=== PATIENT | female | born 1970 | race Caucasian/White ===

== ENCOUNTER 2016-12-09 11:33 | Day surgery (SDC) | payer OTHER ==
[~2016-12-09] VITALS: Ht 160 cm; Wt 66.0 kg
[2016-12-09] VITALS (20 sets, daily range): BP systolic 83–130; BP diastolic 45–79; PULSE 50–104; RESP 15–25; Ht 160 cm; Wt 66.0 kg
[~2016-12-09 11:33] MED LIST: CIPROFLOXACIN 400 MG in D5W 200 ML IVPB PRN; IRON
[2016-12-09] MEDS ORDERED: IOHEXOL 300MG/ML 30 ML BTL ONE (12:04)
[2016-12-09] MEDS ORDERED: TOPI-25 PO (12:30)
[2016-12-09] MEDS ORDERED: PROPOFOL 20 ML ONE (13:04)
[2016-12-09] MEDS ORDERED: GLYCOPYRROLATE 0.4 MG INJ ONE ×2 (13:04→13:49)
[2016-12-09] MEDS ORDERED: ROCURONIUM 50 MG INJ ONE (13:04)
[2016-12-09] MEDS ORDERED: MEPERIDINE 100 MG INJ ONE (13:04)
[2016-12-09] MEDS ORDERED: NEOSTIGMINE 3 MG/3 ML SYRINGE ONE (13:04)
[2016-12-09] MEDS ORDERED: LIDOCAINE 2% (SDV) 5 ML INJ ONE (13:04)
[2016-12-09] MEDS ORDERED: SUCCINYLCHOLINE CHLORIDE 100 MG/5 ML SYG IV ONE (13:04)
--- NOTE | 2016-12-09 13:04 | HPN ---
Date/Time of Note Date/Time of Note DATE: 12/09/16 TIME: 13:04 Interval H&P Admission Note Pt. seen H&P reviewed: No system changes CELSO SARKAR Dec 09, 2016 13:04
[2016-12-09] MEDS ORDERED: ONDANSETRON 4 MG INJ ONE (13:48)
[2016-12-09] MEDS ORDERED: METOCLOPRAMIDE 10 MG INJ ONE (13:48)
[2016-12-09] MEDS ORDERED: HYDROmorphONE (0.2 MG/ML) 10ML SYG IV PRN ×3 (14:00)
[2016-12-09] MEDS ORDERED: ONDANSETRON 4 MG INJ IV PRN (14:00)
[2016-12-09] MEDS ORDERED: MEPERIDINE 25 MG INJ IV PRN (14:00)
[2016-12-09] MEDS ORDERED: hydrALAzine 20 MG INJ IV PRN (14:00)
[2016-12-09] MEDS ORDERED: MIDAZOLAM 1 MG/ML 2 ML INJ IV PRN (14:00)
[2016-12-09] MEDS ORDERED: LABETALOL HCL 20MG INJ IV PRN (14:00)
[2016-12-09] MEDS ORDERED: METOCLOPRAMIDE 10 MG INJ IV PRN (14:00)
[2016-12-09] MEDS ORDERED: DIPHENHYDRAMINE 50 MG INJ IV PRN (14:00)
[2016-12-09] MEDS ORDERED: EPHEDrine SULFATE 50 MG/5 ML SYG IV PRN (14:00)
[2016-12-09] MEDS ORDERED: OXYCODONE/ACETAMINOPHEN (5/325) TAB PO PRN ×2 (14:00)
[2016-12-09] MEDS ORDERED: FENTAnyl 50 MCG/ML VIAL IV PRN ×3 (14:00)
--- NOTE | 2016-12-09 14:04 | OPR ---
Date/Time of Note Date/Time of Note DATE: 12/09/16 TIME: 14:02 Operative Report Procedure Date: Dec 09, 2016 Preoperative Diagnosis r. ureteral stone Postoperative Diagnosis same Operation/Procedure Performed exchange r stent, rgp, ureteroscopic stone extraction Surgeon kalli Order Clerk kalli Anesthesia Type: general Estimated Blood Loss: none Transfusion none Specimen stone Grafts/Implants none Tubes/Drains 24 cm 4.8 f stent Complications none Pt Condition Post Procedure: stable Disposition: PACU Indications stone Procedure Description dictated [id number] CELSO SARKAR Dec 09, 2016 14:04
--- NOTE | 2016-12-09 14:04 | OPR ---
Date/Time of Note Date/Time of Note DATE: 12/09/16 TIME: 14:02 Operative Report Procedure Date: Dec 09, 2016 Preoperative Diagnosis r. ureteral stone Postoperative Diagnosis same Operation/Procedure Performed exchange r stent, rgp, ureteroscopic stone extraction Surgeon kalli Micro Computer Specialist kalli Anesthesia Type: general Estimated Blood Loss: none Transfusion none Specimen stone Grafts/Implants none Tubes/Drains 24 cm 4.8 f stent Complications none Pt Condition Post Procedure: stable Disposition: PACU Indications stone Procedure Description dictated [id number] CELSO SARKAR Dec 09, 2016 14:04
--- NOTE | 2016-12-09 14:04 | OPR ---
Date/Time of Note Date/Time of Note DATE: 12/09/16 TIME: 14:02 Operative Report Procedure Date: Dec 09, 2016 Preoperative Diagnosis r. ureteral stone Postoperative Diagnosis same Operation/Procedure Performed exchange r stent, rgp, ureteroscopic stone extraction Surgeon kalli Php Wordpress Developer kalli Anesthesia Type: general Estimated Blood Loss: none Transfusion none Specimen stone Grafts/Implants none Tubes/Drains 24 cm 4.8 f stent Complications none Pt Condition Post Procedure: stable Disposition: PACU Indications stone Procedure Description dictated [id number] CELSO SARKAR Dec 09, 2016 14:04
[2016-12-09] MEDS ORDERED: PROVENTIL HFA 6.7GM INHALER ONE (14:05)
--- NOTE | 2016-12-09 14:07 | PDOCDIS ---
Discharge Instructions DIAGNOSIS Discharge Diagnosis right ureteral stone CONDITION Patient Condition: Good HOME CARE INSTRUCTIONS: Diet Instructions: Regular ACTIVITY: Activity Restrictions: No Restrictions FOLLOW UP/APPOINTMENTS Follow-up Plan F/U Office next week for removal of stent. Patient to call for time and date REFERRALS Other Referrals None OTHER ORDERS: Other Orders: Tramadol for pain SCHOOL/WORK RELEASE May return to School/Work on: Dec 10, 2016 CELSO SARKAR Dec 09, 2016 14:07
[2016-12-09] MEDS ORDERED: IOHEXOL 350 100 ML BTL IV ONE (14:24)
--- NOTE | 2016-12-09 14:51 | HP ---
DATE OF ADMISSION: 12/09/2016 HISTORY OF PRESENT ILLNESS: Prerna is a 46-year-old female with urinary tract infection and nephroli thiasis. She is status post insertion of a right ureteral stent on 10/20/2016. Follow up CT scan d emonstrates stone burden in the proximal right ureter with a stent in place. She now presents for c ystoscopy, removal of stent, right retrograde pyelogram, ureteroscopy, endoscopic holmium laser lith otripsy, insertion right ureteral stent. PAST MEDICAL HISTORY: Nephrolithiasis, hepatitis C. PAST SURGICAL HISTORY: Cholecystectomy, gastric bypass, fistula repair, exploratory laparotomy, ins ertion of stent. ALLERGIES: NSAIDs, BACTRIM AND PENICILLIN. CURRENT MEDICATIONS: Topiramate. PHYSICAL EXAMINATION: LUNGS: Breath sounds bilaterally. HEART: Regular rate and rhythm. ABDOMEN: Soft, nondistended, nontender, no palpable masses. No flank or CVA tenderness. No masses . IMPRESSION: Proximal right ureteral stone burden, status post insertion of stent. PLAN: Removal of stent, right retrograde pyelogram, ureteroscopic stone extraction with endoscopic Holmium laser lithotripsy, basketing the stone fragments and reinsertion of stent. How the procedur e is performed, potential complications, inability to reach the stone burden, migration of stone bur den, requirement of removal of stent in a timely fashion, bladder ureteral renal injury secondary op en procedure, secondary closed procedure, symptoms associated with the stent have additionally all b een reviewed. Preoperative consent has been reviewed and signed. All questions have been answered. Dictated By: CELSO STUART/LORNA Conf#: [id number] DID#: [id number]
--- NOTE | 2016-12-09 15:35 | OPR ---
DATE OF OPERATION: 12/09/2016 BRIEF HISTORY: Prerna is a 46-year-old female with a right ureteral stone, status post insertion of stent by outside urologist now presenting for removal of stent, ureteroscopic stone extraction with endoscopic Holmium laser lithotripsy and reinsertion of stent. How the procedure is performed, pote ntial complications, side effects, etc. have all been previously discussed with patient and document ed. PREOPERATIVE DIAGNOSIS: Right ureteral stone. POSTOPERATIVE DIAGNOSIS: Right ureteral stone. PROCEDURE: Removal of right ureteral stent, right retrograde pyelogram, ureteroscopic stone extract ion with endoscopic holmium laser lithotripsy, basket of stone fragments, insertion right ureteral s tent. SURGEON: Dr. Lopez. ANESTHESIA: General. FINDINGS: Impacted right mid ureteral stent with partial encrustation of stent. DRAINS: A 24 cm 4.8 Slovenian ureteral stent. COMPLICATIONS: None. SPECIMENS: Stone. PROCEDURE: The patient was brought into the operating room and placed on the operating room table i n the supine lithotomy position. She was prepped and draped in usual fashion after anesthesia was i nduced. A timeout was undertaken. Appropriate pressure points were padded and she received preoper ative antibiotic therapy. Sequential compression devices were applied. A KUB with oblique was obta ined which demonstrated increase in bowel gas pattern consistent with prior gastric bypass surgery. The previously placed right ureteral stent was in proper anatomical position. No stone burden coul d be appreciated along the course of the stent. Rigid cystoscopy was undertaken with a 12-degree, 3 0-degree angle lens protruding from the right ureteral orifice. It was a right ureteral stent which was encrusted with marked encrustation. There is marked amount of inflammatory response around the right ureteral orifice. No other abnormalities could be appreciated. Utilizing gentle manipulatio n and a flexible graspers, the ureteral stent was removed at the level of the urethral meatus. This was removed with very gentle manipulation, adherence of the stent to the surrounding tissue was rosalia reciated yet the stent was noted to be removed in an antegrade fashion without any noted difficulty. In an attempt to insert a wire up through the ureteral stent was unable to be performed due to enc rustation. The distal 3 cm of the stent were then cut and a repeat attempt to insert a wire into th e lumen was still unable to be performed due to encrustation within the lumen and thus the stent was removed intact. Once again, a slight amount of encrustation could be appreciated, yet without any noted difficulty, the stent was removed intact. Repeat cystoscopy demonstrated debris to exit from the right ureteral orifice. The 5-Slovenian open-ended catheter was then reinserted into the ureter wh ich demonstrated a luminal defect in the mid ureter and marked hydroureteronephrosis. The collectin g system is massively dilated. The open-ended catheter was advanced up to the level of the renal pe lvis, which allowed for an Amplatz wire to be placed. Ureteroscopy was then undertaken without any difficulty. The ureteroscope was easily inserted into the distal right ureter. There is a marked a mount of inflammatory response and edema of the barron of the ureter. In the mid ureter an impacted stone was identified and, under direct vision, a 275 micron Holmium fiber was utilized to fragment t he stone. The fragments were appropriately fragmented under direct vision with the portion of the f ragments being sent to pathology for stone analysis, the stone fragments were removed with a 3.0 nit inol tipless basket. This was repetitively performed under direct vision until no further stone bur den could be appreciated. At this point, a repeat ureteroscopy was undertaken. The ureteroscope wa s easily inserted up into the level of the renal pelvis at the juncture of the upper gely and renal pelvis. No further stone burden could be appreciated. Debris was noted within the renal pelvis co nsistent with an indwelling ureteral stent. No further points of obstruction could be appreciated. Due to marked amount of edema of the ureter, a 24 cm 4.8 Slovenian ureteral stent was inserted with th e proximal aspect coiling within the renal pelvis and the distal aspect coiling within the bladder. Attached to the distal end was a taper string. Appropriate position was confirmed with direction w ith fluoroscopy and a KUB. The patient will be transferred to recovery room in stable condition and discharged to home when stable. Of note, the patient states that preoperatively she is unable to t olerate narcotics, but has been taking Tramadol 50 mg p.o. q.i.d. p.r.n. and thus a prescription for tramadol has been written, dispensed #40 tablets, no refill. She will follow up next week for a cy stoscopy, stent removal. The importance of timely removal of stent to void further encrustation and complications has been stressed with her preoperatively as well as postoperatively with her sister. Dictated By: CELSO STUART/LORNA Conf#: [id number] DID#: [id number]
--- NOTE | 2016-12-09 17:07 | RADRPT ---
PROCEDURE: Intraoperative imaging of the abdomen and pelvis with fluoroscopy. CLINICAL INDICATION: Abdominal pain. Intraoperative. TECHNIQUE: 5 images of the abdomen and pelvis were obtained in the operating room with an image in tensifier. No radiologist was in attendance. Fluoroscopy time is 49 seconds and 5 images were obta ined. COMPARISON: No prior study is available for comparison. FINDINGS: The first image demonstrates a right ureteral stent. The second image demonstrates injection of cont rast into the right renal pelvis which appears markedly dilated. The final images demonstrate replac ement of the right ureteral stent. IMPRESSION: 1. Marked right hydronephrosis. 2. Replacement of right ureteral stent. RPTAT: QQ .Barney Katz MD, Date Time Electronically viewed and signed by .Barney Katz MD, on 12/09/2016 17:06 .R/
== END 2016-12-09 16:22 | disposition home or self-care (01) ==
LOC: SDS 11:33
PROVIDERS: ATTEND Urology
DX: N20.1 Calculus of ureter (principal); Z88.0 Allergy status to penicillin; Z88.8 Allergy status to other drugs, medicaments and biological substances; Z90.49 Acquired absence of other specified parts of digestive tract; Z88.2 Allergy status to sulfonamides; Z98.84 Bariatric surgery status
CPT/HCPCS: 52356; 74420; 80053; 81001; 85025; 85610; 85730; 88300; J0744; J2175; J2405; J2710; J2765; J3010; Q9967; Z7512; Z7610

== ENCOUNTER 2016-12-11 23:30 | Emergency (ER) | payer OTHER ==
[~2016-12-11] VITALS: Ht 160 cm; Wt 70.0 kg
[~2016-12-11 23:30] MED LIST changes: -CIPROFLOXACIN 400 MG in D5W 200 ML IVPB PRN; -IRON; +TOPI-25 PO
[2016-12-11 23:45] VITALS: Ht 160 cm; Wt 70.0 kg
[2016-12-12] MEDS ORDERED: morphine 4 MG/ML VIAL IV STA (05:15)
[2016-12-12] MEDS ORDERED: ONDANSETRON 4 MG INJ IV STA ×3 (05:15→07:16)
[2016-12-12] MEDS ORDERED: SOD CHLORIDE 0.9% 1,000 ML IV STA (05:15)
[2016-12-12] MEDS ORDERED: HYDROmorphONE 1 MG/ML SYG IV STA ×2 (06:06→07:16)
--- NOTE | 2016-12-12 06:12 | ERD ---
ER Documentation Chief Complaint Chief Complaint right flank pain, has kidney/bladder placed on wednesday due to kidney ston HPI This is a very pleasant 46-year-old female with a known history of nephrolithiasis and stent placement in the right kidney 2 days prior to arrival at [facility]. Her urologist is Dr. Lopez. She is scheduled to have the urological stent removed on December 15. The patient is on ciprofloxacin and has a prescription of tramadol for pain. She indicates that at 11 AM yesterday morning roughly 19 hours prior to arrival she developed a sudden pressure-like sensation in the right lower quadrant and right groin region. She indicates it is intermittent pain and is a sharp shooting pain. The pain progressively worsened and became more frequent which prompted her to come to the emergency department to be further evaluated as Tylenol did not improve her symptoms. She states the pain is 10 out of 10 in intensity. She has had no fevers or shaking or chills. The pain is exacerbated with movement. She denies any gross hematuria. She has no frequency urgency or dysuria. She has no shortness of breath at rest or exertion. ROS All systems reviewed and are negative except as per history of present illness. Medications Home Meds Reported Medications Topiramate* (Topiramate*) 100 Mg Tablet, 200 MG PO BID, TAB 12/09/16 Discontinued Reported Medications [Iron] No Conflict Check 11/02/10 Allergies Allergies: Coded Allergies: NSAIDS (Non-Steroidal Anti-Inflamma (Verified Allergy, Unknown, PT CAN ONLY TAKE BY IV NOT ORAL PT HAD GASTRIC BYPASS, 12/09/16) Penicillins (Verified Allergy, Unknown, CHEST TIGHTENING, 12/09/16) sulfamethoxazole (Verified Allergy, Unknown, CHEST TIGHTENING, 12/09/16) trimethoprim (Verified Allergy, Unknown, CHEST TIGHTENING, 12/09/16) prednisone (Verified Adverse Reaction, Unknown, MUSLE PAIN, 12/08/16) PMhx/Soc History of Surgery: Yes (STENT PLACEMENT 12/09/16) Anesthesia Reaction: No Hx Neurological Disorder: No Hx Respiratory Disorders: No Hx Cardiac Disorders: No Hx Psychiatric Problems: No Hx Miscellaneous Medical Probl: No Hx Alcohol Use: No Hx Substance Use: No Hx Tobacco Use: Yes Smoking Status: Current every day smoker Physical Exam Vitals Vital Signs Date Time Temp Pulse Resp B/P Pulse Ox O2 Delivery O2 Flow Rate FiO2 12/12/16 06:27 98.1 65 18 108/69 98 Room Air 12/11/16 23:45 97.2 75 20 108/66 99 Physical Exam Constitutional:Well-developed. Well-nourished. Patient appeared to be in a significant amount discomfort secondary to pain HEENT:Normocephalic. Atraumatic.Pupils were equal round reactive to light. Moist mucous membranes.No tonsillar exudates. Neck: No nuchal rigidity. No lymphadenopathy. No posterior cervical spine tenderness or step-offs. Respiratory: Not using accessory muscles of respiration.Lungs were clear to auscultation bilaterally. No rhonchi. No rales. No wheezing. Cardiovascular: Regular rate regular rhythm.No murmurs. No rubs were appreciated.S1, S2 normal. Distal pulses are palpable 2+ bilaterally. GI: Abdomen was soft. Tenderness in the right lower quadrant nonspecific over McBurney's point as psoas sign and obturator sign were negative. Non Distended. No pulsatile abdominal masses or bruits. No rebound. No guarding. Bowel sounds were present and normal. No CVA tenderness. Muscle skeletal: Full range of motion of both the upper and lower extremities bilaterally.Normal muscle tone.No assymetrical calf tenderness or swelling. Skin: No petechia, no purpura. No lesions on the palms or the soles of the feet. No maculopapular rash. NEURO: Patient was alert, awake, orientated x3.No facial droop. Gait observed and normal with no ataxia.Speech had regular rate and rhythm. No focal neurological deficits. Result Diagram: 12/12/1630 12/12/1630 Results 24 hrs Laboratory Tests Test 12/12/16 05:30 12/12/16 05:32 White Blood Count 6.010^3/ul Red Blood Count 3.5910^6/ul Hemoglobin 9.1g/dl Hematocrit 30.3% Mean Corpuscular Volume 84.4fl Mean Corpuscular Hemoglobin 25.3pg Mean Corpuscular Hemoglobin Concent 30.0g/dl Red Cell Distribution Width 15.2% Platelet Count 12443^3/UL Mean Platelet Volume 10.7fl Neutrophils % 48.3% Lymphocytes % 40.5% Monocytes % 6.8% Eosinophils % 3.2% Basophils % 1.0% Nucleated Red Blood Cells % 0.0/100WBC Neutrophils # 2.910^3/ul Lymphocytes # 2.410^3/ul Monocytes # 0.410^3/ul Eosinophils # 0.210^3/ul Basophils # 0.110^3/ul Nucleated Red Blood Cells # 0.010^3/ul Urine Color YELLOW Urine Clarity CLOUDY Urine pH 5.0 Urine Specific [place] 1.020 Urine Ketones NEGATIVEmg/dL Urine Nitrite NEGATIVEmg/dL Urine Bilirubin NEGATIVEmg/dL Urine Urobilinogen NEGATIVEmg/dL Urine Leukocyte Esterase 3+Negin/ul Urine Microscopic RBC > 182/HPF Urine Microscopic WBC 29/HPF Urine Squamous Epithelial Cells FEW/HPF Urine Calcium Oxalate Crystals MANY/HPF Urine Bacteria FEW/HPF Urine Mucus FEW/HPF Urine Hemoglobin 3+mg/dL Urine Glucose NEGATIVEmg/dL Urine Total Protein 2+mg/dl Sodium Level 145mmol/L Potassium Level 3.6mmol/L Chloride Level 114mmol/L Carbon Dioxide Level 20mmol/L Anion Gap 15 Blood Urea Nitrogen 12mg/dl Creatinine 0.61mg/dl Glucose Level 92mg/dl Calcium Level 8.5mg/dl Total Bilirubin 0.3mg/dl Direct Bilirubin 0.00mg/dl Indirect Bilirubin 0.3mg/dl Aspartate Amino Transf (AST/SGOT) 29IU/L Alanine Aminotransferase (ALT/SGPT) 33IU/L Alkaline Phosphatase 77IU/L Total Protein 7.2g/dl Albumin 3.8g/dl Globulin 3.40g/dl Albumin/Globulin Ratio 1.11 Lipase 255U/L Bedside Urine pH (LAB) 6.0 Bedside Urine Protein (LAB) 3+ Bedside Urine Glucose (UA) Negative Bedside Urine Ketones (LAB) Negative Bedside Urine Blood 3+ Bedside Urine Nitrite (LAB) Negative Bedside Urine Leukocyte Esterase (L 1+ Current Medications Medications (Trade) Dose Ordered Sig/Amanda Route PRN Reason Start Time Stop Time Status Last Admin Dose Admin Sodium Chloride (NS) 1,000 ml @ 1,000 mls/hr Q1H STAT IV 12/12/16 05:15 12/12/16 06:14 DC 12/12/16 05:30 Morphine Sulfate (morphine) 4 mg ONCE STAT IV 12/12/16 05:15 12/12/16 05:17 DC 12/12/16 05:42 Ondansetron HCl (Zofran Inj) 4 mg ONCE STAT IV 12/12/16 05:15 12/12/16 05:17 DC 12/12/16 05:42 Hydromorphone HCl (Dilaudid) 1 mg ONCE STAT IV 12/12/16 06:06 12/12/16 06:07 DC 12/12/16 06:11 Ondansetron HCl 4 mg 4 mg ONCE STAT IV 12/12/16 06:06 12/12/16 06:07 DC 12/12/16 06:10 Ciprofloxacin/ Dextrose (Cipro Ivpb) 200 ml @ 200 mls/hr ONCE ONCE IVPB 12/12/16 06:30 12/12/16 07:29 12/12/16 06:42 Procedures/MDM This patient presented to the emergency department with abdominal pain and was seen and evaluated by myself. My differential diagnosis included but was not limited to abdominal aortic aneurysm, appendicitis, pancreatitis, perforated peptic ulcer, perforated viscus, Boerhaave's syndrome or visceral pain such as diverticulitis, DKA, esophagitis, hepatitis or bowel obstruction. The patient was placed on a home specialist, continuous pulse oximetry, and IV access was established by nursing staff. The patient received intravenous morphine and Zofran with no improvement of her symptoms and therefore was given IV Dilaudid. Given the severity of the patient's symptoms I did feel is necessary to obtain a CT scan of the abdomen which was reviewed by myself and the radiologist and indicated the followin. Double-J right ureteral stent in place in good position. Moderate right hydronephrosis. Punctate non-obstructing inferior right renal calcified calculus. 2. No other calcified urinary calculi. No left obstructive uropathy. 3. Status post partial gastric resection. Moderate size hiatal hernia. 4. Status post cholecystectomy without biliary ductal dilation. The patient also had a urinary tract infection. She is currently on oral Cipro but given the severity of her symptoms the urine culture was obtained and she was given IV antibiotics which included ciprofloxacin. The patient's pain had improved. I did feel to be safely discharged home with follow-up with Dr. Lopez her urologist for stent removal. The patient was discharged home in fair condition. They were instructed to return to the emergency department at any time if there was any worsening of their condition. The patient stated they would follow up with their PCP in the next 24-48 hours to initiate a suitable medication regimen under the care of their PCP as well as to allow their PCP to monitor any drug reactions. The patient was discharged home with prescriptions after they gave informed consent to the new medication. They were also fully informed by myself on the adverse effects and adverse drug interactions in order to provide adequate safeguards to prevent possible adverse reactions to medications. Departure Diagnosis: Primary Impression: Flank pain Additional Impression: UTI (urinary tract infection) Urinary tract infection type: acute cystitis Hematuria presence: without hematuria Qualified Code: N30.00 - Acute cystitis without hematuria Condition: DAVID Ashby Dec 12, 2016 06:12
--- NOTE | 2016-12-12 06:12 | RADRPT ---
PROCEDURE: CT Abdomen and pelvis without contrast. CLINICAL INDICATION: Abdominal pain TECHNIQUE: CT scan of the abdomen and pelvis without contrast was performed on a multidetector hig h-resolution CT scan. . Coronal and sagittal reformatted images were obtained from the axial [facility] e images. Standard CT scan of the abdomen pelvis without contrast protocols were performed. The total exam CTDI equals a 0.13 mGy and the total exam DLP equals 478.9 mGy-cm. One or more of the following dose reduction techniques were used: - Automated exposure control. - Adjustment of the mA and/or kV according to patient size. Use of iterative reconstruction technique. COMPARISON: None. FINDINGS: The patient status post previous gastric resection with postsurgical changes. There is a moderate si ze hiatal hernia. The stomach is otherwise unremarkable. There is a double-J right ureteral stent in place in good position. There is a punctate 2-3 mm inferior nonobstructing right renal calcified ca lculus. No other urinary calcified calculi. There is moderate right hydronephrosis. No evidence of l eft hydronephrosis. No evidence of intra renal masses bilaterally. The urinary bladder is contracted but otherwise unremarkable. Anteverted uterus otherwise unremarkable. No adnexal masses. Negative for intra-abdominal free fluid , free air, abscesses or lymphadenopathy. The appendix is unremarkable. Extensive retained stool thr oughout the large bowel and rule out constipation. The colon is otherwise unremarkable. The small joanna wel is unremarkable. Status post cholecystectomy without evidence of biliary ductal dilation. Liver spleen pancreas and a drenal glands are unremarkable. There are accessory spleens present the largest along the medial asp ect measuring 1.2 cm. The aorta is unremarkable. Lung bases unremarkable. Abdominal pelvic wall unremarkable. Degenerative changes lower thoracic and lumbar spine. Limbus vertebra at the L3 vertebral level. No acute osseou s findings are osteoblastic/osteolytic lesions. IMPRESSION: 1. Double-J right ureteral stent in place in good position. Moderate right hydronephrosis. Punctate non-obstructing inferior right renal calcified calculus. 2. No other calcified urinary calculi. No left obstructive uropathy. 3. Status post partial gastric resection. Moderate size hiatal hernia. 4. Status post cholecystectomy without biliary ductal dilation. RPTAT:AAJJ Nilesh Colby Physician Date Time Electronically viewed and signed by Nilesh Colby Physician on 12/12/2016 06:12 BM/
[2016-12-12 06:27] VITALS: TEMP 98.1
[2016-12-12] MEDS ORDERED: CIPROFLOXACIN 400MG/D5W 200 ML IVPB ONE (06:30)
[2016-12-12 08:35] VITALS: BP 118/66; PULSE 64; RESP 20
== END 2016-12-12 08:36 | disposition home or self-care (01) ==
LOC: E/R 23:30
DX: N39.0 Urinary tract infection, site not specified (principal); F17.210 Nicotine dependence, cigarettes, uncomplicated; R40.2142 Coma scale, eyes open, spontaneous, at arrival to emergency department; R40.2252 Coma scale, best verbal response, oriented, at arrival to emergency department; R40.2362 Coma scale, best motor response, obeys commands, at arrival to emergency department
CPT/HCPCS: 36415; 74176; 80053; 81001; 83690; 85025; 87086; 96374; 96375; 96376; J0744; J1170; J2270; J2405; J7030; Z7502; 81003